=== PATIENT | female | born 2005 | race Caucasian/White ===

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

== ENCOUNTER 2023-01-24 09:33 | Emergency (ER) | payer OTHER ==
[~2023-01-24] VITALS: Ht 160 cm; Wt 72.4 kg
[2023-01-24] MEDS ORDERED: NAPR-837 PO (13:05)
[2023-01-24] MEDS ORDERED: CYCL-707 PO (13:05)
[2023-01-24 13:13] VITALS: BP 130/77; TEMP 98.4; O2SAT 99
== END 2023-01-24 13:19 | disposition home or self-care (01) ==
LOC: M ED 09:33
DX: S70.02XA Contusion of left hip, initial encounter (principal); S23.3XXA Sprain of ligaments of thoracic spine, initial encounter; V43.62XA Car passenger injured in collision with other type car in traffic accident, initial encounter; Y92.410 Unspecified street and highway as the place of occurrence of the external cause